=== PATIENT | male | born 1930 | race Caucasian/White ===

== ENCOUNTER 2018-06-21 08:39 | Day surgery (SDC) | payer MEDICARE, BC ==
[~2018-06-21] VITALS: Ht 177.8 cm; Wt 71.2 kg
[2018-06-21] MEDS ORDERED: AZEL137S4 NAS (09:19)
[2018-06-21] MEDS ORDERED: EZET1TAB61 PO (09:19)
[2018-06-21] MEDS ORDERED: TRIA1TAB3 PO (09:19)
[2018-06-21] MEDS ORDERED: LISI-167 PO (09:19)
[2018-06-21] MEDS ORDERED: FENO134C PO (09:19)
[2018-06-21] MEDS ORDERED: METO-99 PO (09:19)
[2018-06-21] MEDS ORDERED: AMLO10TA6 PO (09:19)
[2018-06-21] MEDS ORDERED: LACTATED RINGERS 1,000 ML IV SCH (09:20)
[2018-06-21 09:21] VITALS: BP 147/76
[2018-06-21 09:49] LABS: BASOPHILS # (AUTO) 0.03 x10^3/uL (0-0.1); BASOPHILS % (AUTO) 1 % (0-1); EOSINOPHILS # (AUTO) 0.06 x10^3/uL (0-0.4); EOSINOPHILS % (AUTO) 1 % (1-7); LYMPHOCYTES # (AUTO) 0.94 x10^3/uL (1-3.4); LYMPHOCYTES % (AUTO) 22 % (22-44); MD NO; MEAN CORPUSCULAR HEMOGLOBIN 31.3 pg (27.5-34.5); MEAN CORPUSCULAR HGB CONC 33.8 g/dL (33.2-36.2); MEAN CORPUSCULAR VOLUME 92.5 fL (81-97); MEAN PLATELET VOLUME 7.7 fL (7.4-10.4); MONOCYTES # (AUTO) 0.36 x10^3/uL (0.2-0.8); MONOCYTES % (AUTO) 8 % (2-9); NEUTROPHILS # (AUTO) 2.93 x10^3/uL (1.8-6.8); NEUTROPHILS % (AUTO) 68 % (42-75); PLATELET COUNT 252 x10^3/uL (130-400); RED BLOOD COUNT 3.28 x10^6/uL (4.38-5.82); RED CELL DISTRIBUTION WIDTH 14.5 % (9.4-14.8)
[2018-06-21 09:59] LABS: ALBUMIN 3.4 g/dL (3.4-5.0); ANION GAP 11 mmol/L (5-15); CHLORIDE 110 mmol/L (98-107)
[2018-06-21] MEDS ORDERED: CHOL5000 PO (10:03)
[2018-06-21 10:05] LABS: ALANINE AMINOTRANSFERASE 75 U/L (12-78); ALKALINE PHOSPHATASE 140 U/L (45-117); BILIRUBIN,TOTAL 1.1 mg/dL (0.2-1.0); CREATININE 2.84 mg/dL (0.7-1.3); TOTAL PROTEIN 6.7 g/dL (6.4-8.2)
[2018-06-21] MEDS ORDERED: SODIUM CHLORIDE 0.9% 1,000 ML IV SCH (10:30)
[2018-06-21] MEDS ORDERED: MIDAZOLAM 1 MG/ML, 2ML ONE (10:37)
[2018-06-21] MEDS ORDERED: FENTANYL PF 100 MCG/2ML ONE ×2 (10:37→11:31)
[2018-06-21] MEDS ORDERED: PHENYLEPHRINE 10 MG/ML ONE (10:38)
[2018-06-21] MEDS ORDERED: CEFAZOLIN 1,000 MG ONE (10:38)
[2018-06-21] MEDS ORDERED: SUCCINYLCHOLINE 20 MG/ML, 10ML ONE (10:38)
[2018-06-21] MEDS ORDERED: LIDOCAINE-MPF 2% ,5ML ONE ×2 (10:38)
[2018-06-21] MEDS ORDERED: PROPOFOL 10 MG/ML, 20ML ONE (10:38)
[2018-06-21] MEDS ORDERED: FENTANYL PF 100 MCG/2ML IV PRN (11:00)
[2018-06-21] MEDS ORDERED: ACETAMINOPHEN 325 MG TABLET PO PRN (11:00)
[2018-06-21] MEDS ORDERED: HYDROmorphone 1 MG/ML, 1ML IV PRN (11:00)
[2018-06-21] MEDS ORDERED: ONDANSETRON 2MG/ML, 2ML IV PRN (11:00)
[2018-06-21] MEDS ORDERED: hydrALAzine 20 MG/ML, 1ML IV PRN (11:00)
[2018-06-21] MEDS ORDERED: MEPERIDINE/PF 25MG/0.5ML IVPush PRN (11:00)
[2018-06-21] MEDS ORDERED: OXYcodone 5 MG/5 ML ORAL.SOL UDC PO PRN (11:00)
[2018-06-21] MEDS ORDERED: LABETALOL 5MG/ML, 20ML IV PRN (11:00)
[2018-06-21] MEDS ORDERED: INDOMETHACIN 50 MG SUPP.RECT ONE (12:26)
[2018-06-21] MEDS ORDERED: INDOMETHACIN 50 MG SUPP.RECT PR ONE (12:30)
== END 2018-06-21 14:30 | disposition home or self-care (01) ==
LOC: OUT 08:39
PROVIDERS: ATTEND Internal Medicine Gastroenterology
DX: K80.51 Calculus of bile duct without cholangitis or cholecystitis with obstruction (principal); K29.50 Unspecified chronic gastritis without bleeding; K22.2 Esophageal obstruction; K44.9 Diaphragmatic hernia without obstruction or gangrene; K29.70 Gastritis, unspecified, without bleeding; I10 Essential (primary) hypertension; R79.89 Other specified abnormal findings of blood chemistry; Z98.890 Other specified postprocedural states; Z90.49 Acquired absence of other specified parts of digestive tract; Z87.39 Personal history of other diseases of the musculoskeletal system and connective tissue; Z72.89 Other problems related to lifestyle
CPT/HCPCS: 36415; 43262; 43274; 74330; 80053; 85025; 88305; 93005; C1725; C1769; C2625; J0330; J0690; J2250; J2370; J2704; J3010; J3490; J7030

== ENCOUNTER 2018-07-26 08:01 | Day surgery (SDC) | payer MEDICARE, BC ==
[~2018-07-26] VITALS: Ht 177.8 cm; Wt 67.8 kg
[~2018-07-26 08:01] MED LIST: AMLO10TA6 PO; AZEL137S4 NAS; CHOL5000 PO; EZET1TAB61 PO; FENO134C PO; LISI-167 PO; METO-99 PO; TRIA1TAB3 PO
[2018-07-26] MEDS ORDERED: LACTATED RINGERS 1,000 ML IV SCH (08:45)
[2018-07-26] MEDS ORDERED: SODIUM CHLORIDE 0.9% 1,000 ML IV SCH (08:50)
[2018-07-26 08:51] VITALS: BP 130/75
[2018-07-26] MEDS ORDERED: PLEASE ENTER HEIGHT AND WEIGHT MC SCH (09:00)
[2018-07-26] MEDS ORDERED: FENTANYL PF 100 MCG/2ML ONE (09:36)
[2018-07-26] MEDS ORDERED: DEXAMETHASONE 4 MG/ML, 1ML ONE (09:46)
[2018-07-26] MEDS ORDERED: ONDANSETRON 2MG/ML, 2ML ONE (09:46)
[2018-07-26] MEDS ORDERED: EPHEDRINE 50 MG/ML, 1ML ONE (09:46)
[2018-07-26] MEDS ORDERED: OXYcodone 5 MG/5 ML ORAL.SOL UDC PO PRN (10:00)
[2018-07-26] MEDS ORDERED: MEPERIDINE/PF 25MG/0.5ML IVPush PRN (10:00)
[2018-07-26] MEDS ORDERED: HYDROmorphone 1 MG/ML, 1ML IV PRN (10:00)
[2018-07-26] MEDS ORDERED: ONDANSETRON 2MG/ML, 2ML IV PRN (10:00)
[2018-07-26] MEDS ORDERED: MORPHINE SULFATE 4 MG/ML, 1ML IVPush PRN (10:00)
[2018-07-26] MEDS ORDERED: ALBUTEROL SULFATE 2.5 MG/3 ML NPPB PRN (10:00)
[2018-07-26] MEDS ORDERED: PROMETHAZINE 25 MG/ML, 1ML IV PRN (10:00)
[2018-07-26] MEDS ORDERED: PROMETHAZINE 12.5 MG SUPP PR PRN (10:00)
[2018-07-26] MEDS ORDERED: ONDANSETRON ODT 8 MG PO PRN (10:00)
[2018-07-26] MEDS ORDERED: EPHEDRINE 50 MG/ML, 1ML IVPush PRN (10:00)
[2018-07-26] MEDS ORDERED: MIDAZOLAM 1 MG/ML, 2ML IV PRN (10:00)
[2018-07-26] MEDS ORDERED: LABETALOL 5MG/ML, 20ML IV PRN (10:00)
[2018-07-26] MEDS ORDERED: FENTANYL PF 100 MCG/2ML IV PRN (10:00)
[2018-07-26] MEDS ORDERED: hydrALAzine 20 MG/ML, 1ML IV PRN (10:00)
[2018-07-26] MEDS ORDERED: LORazepam 2 MG/ML, 1ML IVPush PRN (10:00)
[2018-07-26] MEDS ORDERED: SUCCINYLCHOLINE 20 MG/ML, 10ML ONE (10:15)
[2018-07-26] MEDS ORDERED: PROPOFOL 10 MG/ML, 20ML ONE (10:15)
[2018-07-26] MEDS ORDERED: ROCURONIUM 10MG/ML,5ML ONE (10:15)
[2018-07-26] MEDS ORDERED: OMNIPAQUE 350 MG/ML, 50 ML BOTTLE ONE (10:32)
== END 2018-07-26 12:45 | disposition home or self-care (01) ==
LOC: OUT 08:01
PROVIDERS: ATTEND Internal Medicine Gastroenterology
DX: K80.50 Calculus of bile duct without cholangitis or cholecystitis without obstruction (principal); E78.5 Hyperlipidemia, unspecified; I12.9 Hypertensive chronic kidney disease with stage 1 through stage 4 chronic kidney disease, or unspecified chronic kidney disease; N18.9 Chronic kidney disease, unspecified; Z79.899 Other long term (current) drug therapy; Z72.89 Other problems related to lifestyle
CPT/HCPCS: 43262; 43264; 74328; C1769; J0330; J1100; J2405; J2704; J3010; J7030; Q9967